=== PATIENT | male | born 1990 | race American Indian/Alaskan Native ===

== ENCOUNTER 2017-06-22 12:17 | Emergency (ER) | payer SELFPAY ==
[2017-06-22 12:27] VITALS: BMI 22.5
[2017-06-22 12:33] VITALS: RESP 18; TEMP 98.5; O2SAT 99
[2017-06-22] MEDS ORDERED: TDAP Vaccine 0.5 mL Syr IM ONE (13:23)
[2017-06-22] MEDS ORDERED: Lidocaine 1% Inj (20ml) ONE (14:41)
[2017-06-22 15:17] VITALS: BP 118/68; PULSE 66
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
[2017-06-22] MEDS ORDERED: Amoxicillin-Clav 875-125 mg Tab PO STA (15:28)
== END 2017-06-22 15:44 | disposition left against medical advice (07) ==
LOC: ED 12:17
DX: S01.81XA Laceration without foreign body of other part of head, initial encounter (principal); S05.12XA Contusion of eyeball and orbital tissues, left eye, initial encounter; Y08.89XA Assault by other specified means, initial encounter; Y93.01 Activity, walking, marching and hiking; Y92.410 Unspecified street and highway as the place of occurrence of the external cause; Z23 Encounter for immunization